=== PATIENT | female | born 1970 | race African-American/Black ===

== ENCOUNTER 2019-03-04 15:58 | Emergency (ER) | payer SELFPAY ==
[2019-03-04] MEDS ORDERED: cloNIDine 0.1 MG TAB ONE ×2 (16:09→16:19)
[2019-03-04] MEDS ORDERED: Sodium Chloride 0.9% 1,000 ML ONE (16:17)
[2019-03-04] MEDS ORDERED: diphenhydrAMINE 50 MG/ML VIAL ONE (16:18)
[2019-03-04] MEDS ORDERED: Metoclopramide HCl 10 MG/2 ML VIAL ONE (16:19)
[2019-03-04 17:01] LABS: ALT (SGPT) 15 U/L (8-55); AST (SGOT) 22 U/L (5-34); Alkaline Phosphatase 70 U/L (40-150); Anion Gap 14 mmol/L (10-20); BUN (Urea Nitrogen) 13 mg/dL (7.0-18.7); Bilirubin, Total 0.1 mg/dL (0.2-1.2); Calc. Creatinine Clearance 0 mL/min (70-130); Calcium 9.3 mg/dL (7.8-10.44); Carbon Dioxide 24 mmol/L (22-29); Chloride 103 mmol/L (98-107); Estimated GFR-MDRD 61; Globulin 3.8 g/dL (2.4-3.5); Glucose 103 mg/dL (70-105); Potassium 3.8 mmol/L (3.5-5.1); Protein, Total 7.8 g/dL (6.0-8.3); Sodium 137 mmol/L (136-145)
[2019-03-04 17:06] LABS: #Basophils 0.1 thou/uL (0.0-0.2); #Eosinphils 0.2 thou/uL (0.0-0.7); #Lymphocytes 3.1 thou/uL (1.20-3.40); #Monocytes 0.8 thou/uL (0.11-0.59); #Neutrophils 4.2 thou/uL (1.40-6.50); %Basophils 1.6 % (0.0-1.0); %Lymphocytes 36.8 % (21.0-51.0); %Monocytes 9.2 % (0.0-10.0); %Neutrophils 50.3 % (42.0-75.0); Hemoglobin 10.6 g/dL (12.0-16.0); Mean Corpuscular HGB CONC 30.1 g/dL (32.0-36.0); Mean Corpuscular Hemoglobin 26.4 pg (27.0-31.0); Mean Corpuscular Volume 87.5 fL (78.0-98.0); Mean Platelet Volume 15.3 fL (7.4-10.4); Platelet Count 143 thou/uL (130-400); RBC Distribution Width 16.7 % (11.5-14.5); White Blood Cell (WBC) Count 8.3 thou/uL (4.8-10.8)
== END 2019-03-04 17:40 | disposition home or self-care (01) ==
LOC: NAV ERS 15:58
DX: G43.909 Migraine, unspecified, not intractable, without status migrainosus (principal); I10 Essential (primary) hypertension; F41.9 Anxiety disorder, unspecified; F32.9 Major depressive disorder, single episode, unspecified; F17.210 Nicotine dependence, cigarettes, uncomplicated
CPT/HCPCS: 80053; 85025; 96361; 96374; 96375; J1200; J2765; J7050

== ENCOUNTER 2019-06-30 17:58 | Emergency (ER) | payer SELFPAY ==
[2019-06-30] MEDS ORDERED: Ondansetron ODT 4 MG TAB ONE (18:49)
[2019-06-30] MEDS ORDERED: Ibuprofen 800 MG TAB ONE (18:54)
[2019-06-30] MEDS ORDERED: Acetaminophen 500 MG TAB ONE (18:54)
== END 2019-06-30 19:07 | disposition home or self-care (01) ==
LOC: NAV ERS 17:58
DX: J06.9 Acute upper respiratory infection, unspecified (principal); I10 Essential (primary) hypertension; M79.10 Myalgia, unspecified site; G43.909 Migraine, unspecified, not intractable, without status migrainosus; F41.9 Anxiety disorder, unspecified; F31.9 Bipolar disorder, unspecified; F17.210 Nicotine dependence, cigarettes, uncomplicated
CPT/HCPCS: 87081; 87430; 87804; 99283; Q0162

== ENCOUNTER 2019-08-08 10:33 | Emergency (ER) | payer SELFPAY | END 2019-08-08 11:13 | disposition home or self-care (01) | LOC: NAV ERS 10:33 | DX: I10 Essential (primary) hypertension (principal); G43.909 Migraine, unspecified, not intractable, without status migrainosus; F31.9 Bipolar disorder, unspecified; F41.9 Anxiety disorder, unspecified; F17.210 Nicotine dependence, cigarettes, uncomplicated | CPT/HCPCS: 99283 ==

== ENCOUNTER 2019-11-12 11:51 | Outpatient (CLI) | payer OTHER ==
--- NOTE | 2019-11-12 12:12 | RAD ---
XR Lumbar Spine 2 Or 3 View HISTORY: Disability evaluation. Findings: The vertebral bodies are normal in height. Degenerative osteophytes are seen along the cour se of the spine. Minimal disc narrowing is seen at L4-5. Some mild facet hypertrophic changes are present. Pedicles are intact. Atherosclerotic changes are noted. IMPRESSION: Mild arthritic changes of the spine.
== END 2019-11-12 11:52 | disposition home or self-care (01) ==
LOC: NAV RAD 11:51
PROVIDERS: ATTEND Family Medicine
DX: Z02.71 Encounter for disability determination (principal); M54.5 Low back pain; G89.29 Other chronic pain; M47.816 Spondylosis without myelopathy or radiculopathy, lumbar region
CPT/HCPCS: 72100

== ENCOUNTER 2020-01-25 16:11 | Emergency (ER) | payer SELFPAY ==
[2020-01-25] MEDS ORDERED: Oxymetazoline HCl 0.05% (30 ML BOT) ONE (16:24)
[2020-01-25] MEDS ORDERED: Hydrochlorothiazide 25 MG TAB ONE (17:12)
[2020-01-25] MEDS ORDERED: Amlodipine 5 MG TAB ONE (17:12)
[2020-01-25] MEDS ORDERED: Ondansetron ODT 4 MG TAB ONE ×2 (17:49→18:46)
[2020-01-25] MEDS ORDERED: Acetaminophen 325 MG TAB ONE (18:50)
[2020-01-25] MEDS ORDERED: Amoxicillin/Potassium Clav 875 MG TAB ONE (19:33)
== END 2020-01-25 19:48 | disposition home or self-care (01) ==
LOC: NAV ERS 16:11
DX: R04.0 Epistaxis (principal); F41.9 Anxiety disorder, unspecified; F31.9 Bipolar disorder, unspecified; I10 Essential (primary) hypertension; Z79.899 Other long term (current) drug therapy
CPT/HCPCS: 30903; Q0162

== ENCOUNTER 2020-01-29 11:35 | Emergency (ER) | payer SELFPAY ==
[2020-01-29 12:24] LABS: ALT (SGPT) 19 U/L (8-55); AST (SGOT) 23 U/L (5-34); Albumin 3.7 g/dL (3.5-5.0); Alkaline Phosphatase 59 U/L (40-110); Anion Gap 14 mmol/L (10-20); BUN (Urea Nitrogen) 14 mg/dL (7.0-18.7); Bilirubin, Total 0.3 mg/dL (0.2-1.2); Calc. Creatinine Clearance 0 mL/min (70-130); Carbon Dioxide 26 mmol/L (22-29); Chloride 101 mmol/L (98-107); Estimated GFR-MDRD 69; Globulin 3.6 g/dL (2.4-3.5); Glucose 120 mg/dL (70-105); Potassium 3.4 mmol/L (3.5-5.1); Protein, Total 7.3 g/dL (6.0-8.3); Sodium 138 mmol/L (136-145)
[2020-01-29 12:30] LABS: Hemoglobin 7.9 g/dL (12.0-16.0); Mean Corpuscular HGB CONC 29.9 g/dL (32.0-36.0); Mean Corpuscular Hemoglobin 28.1 pg (27.0-31.0); Mean Corpuscular Volume 93.9 fL (78.0-98.0); Mean Platelet Volume 12.6 fL (7.4-10.4); Platelet Count 163 thou/uL (130-400); RBC Distribution Width 16.5 % (11.5-14.5); Red Blood Cell (RBC) Count 2.81 mill/uL (4.20-5.40); White Blood Cell (WBC) Count 11.7 thou/uL (4.8-10.8)
[2020-01-29 12:34] LABS: #Basophils 0.1 thou/uL (0.0-0.2); #Eosinphils 0.2 thou/uL (0.0-0.7); #Neutrophils 8.5 thou/uL (1.40-6.50); %Basophils 0.8 % (0.0-1.0); %Eosinophils 1.5 % (0.0-10.0); %Lymphocytes 16.6 % (21.0-51.0); %Monocytes 8.2 % (0.0-10.0); %Neutrophils 72.9 % (42.0-75.0); Hypochromia SLIGHT = 6-15 cells (100X) (0-5/hpf); Large Platelets SLIGHT; MDiff Complete? YES; Platelet Morphology Comment Appears Adequate
== END 2020-01-29 13:00 | disposition home or self-care (01) ==
LOC: NAV ERS 11:35
DX: D64.9 Anemia, unspecified (principal); R22.0 Localized swelling, mass and lump, head; I10 Essential (primary) hypertension; F31.9 Bipolar disorder, unspecified; F41.9 Anxiety disorder, unspecified; F17.210 Nicotine dependence, cigarettes, uncomplicated; Z79.899 Other long term (current) drug therapy
CPT/HCPCS: 36415; 80053; 85025; 99284

== ENCOUNTER 2020-10-14 14:44 | Emergency (ER) | payer SELFPAY ==
[2020-10-16 01:19] LABS: SARS-CoV-2 PCR by NAA Not Detected (NotDetected)
== END 2020-10-14 15:30 | disposition home or self-care (01) ==
LOC: NAV ERS 14:44
DX: B34.9 Viral infection, unspecified (principal); Z20.822 Contact with and (suspected) exposure to COVID-19; I10 Essential (primary) hypertension; F17.210 Nicotine dependence, cigarettes, uncomplicated; G43.909 Migraine, unspecified, not intractable, without status migrainosus; Z79.899 Other long term (current) drug therapy
CPT/HCPCS: 87635; 99283; U0003; U0005

== ENCOUNTER 2021-04-03 18:01 | Emergency (ER) | payer SELFPAY ==
[~2021-04-03 18:01] MED LIST: Iopamidol 370 76% 100 ML VIAL ONE
[2021-04-03 18:45] LABS: Bilirubin Small (Negative); Blood, Urine Large (Negative); Glucose, Urine (Dipstick) Negative (Negative); Ketone, Urine Negative (Negative); Leukocyte Small (Negative); Nitrite Negative (Negative); Protein, Urine (Dipstick) Trace mg/dL (Neg-Trace); Specific Gravity, Urine 1.025 (1.005-1.030); pH, Urine 6.5 (5.0-9.0)
[2021-04-03 18:51] LABS: Clarity Hazy (Clear)
[2021-04-03 18:52] LABS: Pregnancy Test - Urine (BHCG) Negative (Negative); Pregu Control Background? CLEAR/WHITE (CLR/WHITE); Pregu Control Bar Appear? YES (CONTROL BAR); Specific Gravity 1.025 (1.002-1.036)
[2021-04-03] MEDS ORDERED: Morphine 4 MG/ML VIAL ONE (19:03)
[2021-04-03] MEDS ORDERED: Ondansetron PF 4 MG/2 ML Vial ONE (19:03)
[2021-04-03 19:05] LABS: Bacteria/HPF 2+ HPF (None Seen); Squamous Epithelial 0-3 HPF (0-3); Trichomonas/HPF 2+ HPF (None Seen); WBC/HPF 0-3 HPF (0-3)
[2021-04-03 19:14] LABS: ALT (SGPT) 16 U/L (8-55); AST (SGOT) 21 U/L (5-34); Albumin 3.9 g/dL (3.5-5.0); Alkaline Phosphatase 71 U/L (40-110); Anion Gap 15 mmol/L (10-20); BUN (Urea Nitrogen) 16 mg/dL (9.8-20.1); Bilirubin, Total 0.2 mg/dL (0.2-1.2); Calc. Creatinine Clearance 0 mL/min (70-130); Calcium 9.5 mg/dL (7.8-10.44); Carbon Dioxide 23 mmol/L (22-29); Chloride 103 mmol/L (98-107); Globulin 4.1 g/dL (2.4-3.5); Glucose 94 mg/dL (70-105); Lipase 33 U/L (8-78); Potassium 3.7 mmol/L (3.5-5.1); Sodium 137 mmol/L (136-145)
[2021-04-03 19:23] LABS: #Basophils 0.1 thou/uL (0.0-0.2); #Eosinphils 0.2 thou/uL (0.0-0.7); #Lymphocytes 3.1 thou/uL (1.20-3.40); #Neutrophils 4.2 thou/uL (1.40-6.50); %Basophils 1.5 % (0.0-1.0); %Eosinophils 2.3 % (0.0-10.0); %Lymphocytes 36.4 % (21.0-51.0); %Monocytes 11.3 % (0.0-10.0); %Neutrophils 48.6 % (42.0-75.0); Hemoglobin 11.4 g/dL (12.0-16.0); Mean Corpuscular HGB CONC 29.4 g/dL (32.0-36.0); Mean Corpuscular Hemoglobin 27.6 pg (27.0-31.0); Mean Corpuscular Volume 93.9 fL (78.0-98.0); Mean Platelet Volume 13.1 fL (7.4-10.4); Platelet Count 125 thou/uL (130-400); RBC Distribution Width 16.4 % (11.5-14.5); Red Blood Cell (RBC) Count 4.13 mill/uL (4.20-5.40); White Blood Cell (WBC) Count 8.6 thou/uL (4.8-10.8)
[2021-04-03] MEDS ORDERED: Sodium Chloride 0.9% 100 ML ONE (21:44)
[2021-04-03] MEDS ORDERED: cefTRIAXone\\ROCEPHIN 1 GM VIAL ONE (21:44)
[2021-04-03] MEDS ORDERED: metroNIDAZOLE 500 MG TAB ONE (22:28)
== END 2021-04-03 22:35 | disposition home or self-care (01) ==
LOC: NAV ERS 18:01
DX: A59.01 Trichomonal vulvovaginitis (principal); I10 Essential (primary) hypertension; G43.909 Migraine, unspecified, not intractable, without status migrainosus; F17.210 Nicotine dependence, cigarettes, uncomplicated; Z79.899 Other long term (current) drug therapy
CPT/HCPCS: 74177; 80053; 81003; 81015; 81025; 83690; 84484; 85025; 93005; 96365; 96375; J0696; J2270; J2405; Q9967

== ENCOUNTER 2021-04-28 16:31 | Emergency (ER) | payer SELFPAY ==
[2021-04-28 18:10] LABS: Bilirubin Negative (Negative); Blood, Urine Negative (Negative); Clarity Clear (Clear); Glucose, Urine (Dipstick) Negative (Negative); Ketone, Urine Negative (Negative); Leukocyte Negative (Negative); Nitrite Negative (Negative); Protein, Urine (Dipstick) Negative (Neg-Trace); Specific Gravity, Urine 1.015 (1.005-1.030); Urobilinogen 0.2 mg/dL (Less than 2); pH, Urine 6.5 (5.0-9.0)
[2021-04-28 18:14] LABS: #Basophils 0.2 thou/uL (0.0-0.2); #Eosinphils 0.2 thou/uL (0.0-0.7); #Lymphocytes 1.6 thou/uL (1.20-3.40); #Monocytes 0.8 thou/uL (0.11-0.59); #Neutrophils 3.1 thou/uL (1.40-6.50); %Eosinophils 3.4 % (0.0-10.0); %Lymphocytes 27.9 % (21.0-51.0); %Monocytes 13.3 % (0.0-10.0); %Neutrophils 52.3 % (42.0-75.0); Hemoglobin 12.5 g/dL (12.0-16.0); Mean Corpuscular HGB CONC 29.3 g/dL (32.0-36.0); Mean Corpuscular Hemoglobin 27.6 pg (27.0-31.0); Mean Corpuscular Volume 94.2 fL (78.0-98.0); Mean Platelet Volume 12.1 fL (7.4-10.4); Platelet Count 120 thou/uL (130-400); RBC Distribution Width 16.9 % (11.5-14.5); Red Blood Cell (RBC) Count 4.52 mill/uL (4.20-5.40); White Blood Cell (WBC) Count 5.8 thou/uL (4.8-10.8)
[2021-04-28 18:21] LABS: ALT (SGPT) 24 U/L (8-55); AST (SGOT) 32 U/L (5-34); Alkaline Phosphatase 64 U/L (40-110); Anion Gap 14 mmol/L (10-20); BUN (Urea Nitrogen) 12 mg/dL (9.8-20.1); Bilirubin, Total 0.2 mg/dL (0.2-1.2); Calc. Creatinine Clearance 0 mL/min (70-130); Calcium 9.6 mg/dL (7.8-10.44); Carbon Dioxide 24 mmol/L (22-29); Chloride 102 mmol/L (98-107); Globulin 4.4 g/dL (2.4-3.5); Glucose 86 mg/dL (70-105); Lipase 37 U/L (8-78); Potassium 3.9 mmol/L (3.5-5.1); Protein, Total 8.4 g/dL (6.0-8.3); Sodium 136 mmol/L (136-145)
[2021-04-28 18:25] LABS: Pregnancy Test - Urine (BHCG) Negative (Negative); Pregu Control Background? CLEAR/WHITE (CLR/WHITE); Pregu Control Bar Appear? YES (CONTROL BAR)
[2021-04-28 18:26] LABS: Specific Gravity 1.015 (1.002-1.036)
[2021-04-28] MEDS ORDERED: Morphine 4 MG/ML VIAL ONE (18:41)
[2021-04-28] MEDS ORDERED: Ondansetron PF 4 MG/2 ML Vial ONE (18:41)
[2021-04-28] MEDS ORDERED: Lisinopril 10 MG TAB ONE (20:14)
[2021-04-28] MEDS ORDERED: Hydrochlorothiazide 25 MG TAB ONE (20:14)
[2021-04-28] MEDS ORDERED: Cyclobenzaprine 10 MG TAB ONE (20:34)
[2021-04-28] MEDS ORDERED: Ketorolac Tromethamine 30 MG/ML VIAL ONE (20:34)
[2021-04-29 23:53] LABS: SARS-CoV-2 PCR by NAA DETECTED (NotDetected)
== END 2021-04-28 21:26 | disposition home or self-care (01) ==
LOC: NAV ERS 16:31
DX: U07.1 COVID-19 (principal); G43.909 Migraine, unspecified, not intractable, without status migrainosus; G89.29 Other chronic pain; R10.31 Right lower quadrant pain; R10.11 Right upper quadrant pain; M54.5 Low back pain; I10 Essential (primary) hypertension; R11.0 Nausea; M79.7 Fibromyalgia; M19.90 Unspecified osteoarthritis, unspecified site; F17.210 Nicotine dependence, cigarettes, uncomplicated; Z79.899 Other long term (current) drug therapy
CPT/HCPCS: 70450; 74177; 80053; 81003; 81025; 83690; 84484; 85025; 93005; 94760; 96374; 96375; J1885; J2270; J2405; Q9967; U0003; U0005

== ENCOUNTER 2021-11-11 09:35 | Emergency (ER) | payer SELFPAY ==
[2021-11-11 10:04] LABS: Bilirubin Negative (Negative); Blood, Urine Moderate (Negative); Clarity Slightly Cloudy (Clear); Glucose, Urine (Dipstick) Negative (Negative); Ketone, Urine Negative (Negative); Leukocyte Negative (Negative); Nitrite Negative (Negative); Protein, Urine (Dipstick) Negative (Neg-Trace); Specific Gravity, Urine 1.025 (1.005-1.030); Urobilinogen 0.2 mg/dL (Less than 2)
[2021-11-11 10:10] LABS: Bacteria/HPF 2+ HPF (None Seen); WBC/HPF 0-3 HPF (0-3); Yeast-Hyphae 1+ HPF (None Seen)
[2021-11-11 10:57] LABS: Pregnancy Test - Urine (BHCG) Negative (Negative); Pregu Control Background? CLEAR/WHITE (CLR/WHITE); Pregu Control Bar Appear? YES (CONTROL BAR); Specific Gravity 1.025 (1.002-1.036)
== END 2021-11-11 10:53 | disposition home or self-care (01) ==
LOC: NAV ERS 09:35
DX: N83.201 Unspecified ovarian cyst, right side (principal); R30.0 Dysuria; I10 Essential (primary) hypertension; M47.9 Spondylosis, unspecified; M79.7 Fibromyalgia; F17.210 Nicotine dependence, cigarettes, uncomplicated; Z79.899 Other long term (current) drug therapy
CPT/HCPCS: 74176; 81003; 81015; 81025; 87077; 87086; 99406

== ENCOUNTER 2022-01-23 07:45 | Emergency (ER) | payer SELFPAY ==
[2022-01-23] MEDS ORDERED: Acetaminophen 325 MG TAB ONE (08:33)
[2022-01-23] MEDS ORDERED: Sodium Chloride 0.9% 1,000 ML ONE (08:33)
[2022-01-23] MEDS ORDERED: Ondansetron PF 4 MG/2 ML Vial ONE (08:33)
[2022-01-23] MEDS ORDERED: Morphine 4 MG/ML VIAL ONE (08:50)
[2022-01-23 08:53] LABS: Bilirubin Small (Negative); Clarity Clear (Clear); Glucose, Urine (Dipstick) Negative (Negative); Ketone, Urine Negative (Negative); Leukocyte Negative (Negative); Nitrite Negative (Negative); Protein, Urine (Dipstick) 30 mg/dL (Neg-Trace)
[2022-01-23 08:54] LABS: Blood, Urine Negative (Negative)
[2022-01-23 09:04] LABS: #Basophils 0.1 thou/uL (0.0-0.2); #Lymphocytes 1.4 thou/uL (1.20-3.40); #Monocytes 0.8 thou/uL (0.11-0.59); #Neutrophils 2.1 thou/uL (1.40-6.50); %Basophils 2.8 % (0.0-1.0); %Eosinophils 0.3 % (0.0-10.0); %Lymphocytes 31.1 % (21.0-51.0); %Monocytes 17.7 % (0.0-10.0); %Neutrophils 48.2 % (42.0-75.0); Hemoglobin 10.6 g/dL (12.0-16.0); Mean Corpuscular HGB CONC 28.5 g/dL (32.0-36.0); Mean Corpuscular Hemoglobin 24.5 pg (27.0-31.0); Mean Corpuscular Volume 85.9 fL (78.0-98.0); Mean Platelet Volume 16.2 fL (7.4-10.4); Platelet Count 123 thou/uL (130-400); RBC Distribution Width 17.9 % (11.5-14.5); Red Blood Cell (RBC) Count 4.31 mill/uL (4.20-5.40); White Blood Cell (WBC) Count 4.5 thou/uL (4.8-10.8)
[2022-01-23 09:09] LABS: Bacteria/HPF Rare-Few HPF (None Seen); RBC/HPF None Seen HPF (0-3)
[2022-01-23 09:10] LABS: WBC/HPF 0-3 HPF (0-3)
[2022-01-23 09:16] LABS: ALT (SGPT) 36 U/L (8-55); AST (SGOT) 42 U/L (5-34); Albumin 4.1 g/dL (3.5-5.0); Alkaline Phosphatase 65 U/L (40-110); Anion Gap 17 mmol/L (10-20); BUN (Urea Nitrogen) 7 mg/dL (9.8-20.1); Bilirubin, Total 0.2 mg/dL (0.2-1.2); Calc. Creatinine Clearance 0 mL/min (70-130); Calcium 9.5 mg/dL (7.8-10.44); Carbon Dioxide 24 mmol/L (22-29); Chloride 101 mmol/L (98-107); Globulin 4.3 g/dL (2.4-3.5); Glucose 103 mg/dL (70-105); Lipase 31 U/L (8-78); Potassium 3.6 mmol/L (3.5-5.1); Protein, Total 8.4 g/dL (6.0-8.3); Sodium 138 mmol/L (136-145)
[2022-01-23] MEDS ORDERED: Losartan Potassium 50 MG TAB ONE (09:32)
[2022-01-23] MEDS ORDERED: Hydrochlorothiazide 25 MG TAB ONE (09:32)
[2022-01-23] MEDS ORDERED: Aspirin Chewable 81 MG TAB ONE (10:15)
[2022-01-23 20:58] LABS: SARS-CoV-2 PCR by NAA DETECTED (NotDetected)
== END 2022-01-23 10:25 | disposition home or self-care (01) ==
LOC: NAV ERS 07:45
DX: U07.1 COVID-19 (principal); I10 Essential (primary) hypertension; R11.2 Nausea with vomiting, unspecified; R91.1 Solitary pulmonary nodule; M79.7 Fibromyalgia; M19.90 Unspecified osteoarthritis, unspecified site; F17.210 Nicotine dependence, cigarettes, uncomplicated; Z79.899 Other long term (current) drug therapy
CPT/HCPCS: 70450; 71045; 74176; 80053; 81003; 81015; 83690; 83735; 84484; 85025; 87804; 93005; 94760; 96361; 96374; 96375; J2270; J2405; J7050; U0003; U0005

== ENCOUNTER 2022-06-01 10:58 | Emergency (ER) | payer SELFPAY ==
[2022-06-01] MEDS ORDERED: cloNIDine 0.1 MG TAB ONE (11:33)
[2022-06-01] MEDS ORDERED: Ondansetron ODT 4 MG TAB ONE (11:33)
== END 2022-06-01 12:24 | disposition home or self-care (01) ==
LOC: NAV ERS 10:58
DX: K52.9 Noninfective gastroenteritis and colitis, unspecified (principal); I10 Essential (primary) hypertension; Z20.822 Contact with and (suspected) exposure to COVID-19; F17.210 Nicotine dependence, cigarettes, uncomplicated; Z79.899 Other long term (current) drug therapy
CPT/HCPCS: 99284; Q0162; U0003; U0005

== ENCOUNTER 2023-05-11 14:04 | Emergency (ER) | payer BC, SELFPAY ==
[2023-05-11] MEDS ORDERED: Ketorolac Tromethamine 30 MG/ML VIAL ONE (14:55)
[2023-05-11] MEDS ORDERED: Ondansetron PF 4 MG/2 ML Vial ONE (14:55)
[2023-05-11 15:05] LABS: Bilirubin Negative (Negative); Blood, Urine Trace (Negative); Glucose, Urine (Dipstick) Negative (Negative); Ketone, Urine Negative (Negative); Leukocyte Negative (Negative); Nitrite Negative (Negative); Protein, Urine (Dipstick) Negative (Neg-Trace); Specific Gravity, Urine 1.025 (1.005-1.030); Urobilinogen 0.2 mg/dL (Less than 2); pH, Urine 5.5 (5.0-9.0)
[2023-05-11 15:07] LABS: #Basophils 0.1 thou/uL (0.0-0.2); #Eosinphils 0.2 thou/uL (0.0-0.7); #Lymphocytes 2.5 thou/uL (1.20-3.40); #Monocytes 0.6 thou/uL (0.11-0.59); #Neutrophils 3.8 thou/uL (1.40-6.50); %Basophils 0.8 % (0.0-1.0); %Eosinophils 3.3 % (0.0-10.0); %Lymphocytes 34.9 % (21.0-51.0); %Monocytes 8.7 % (0.0-10.0); %Neutrophils 52.3 % (42.0-75.0); Hematocrit 42.1 % (36.0-47.0); Hemoglobin 12.9 g/dL (12.0-16.0); Mean Corpuscular HGB CONC 30.7 g/dL (32.0-36.0); Mean Corpuscular Hemoglobin 30.3 pg (27.0-31.0); Mean Corpuscular Volume 98.6 fl (78.0-98.0); Platelet Count 104 10x3/uL (130-400); Red Blood Cell (RBC) Count 4.27 mill/uL (4.20-5.40); White Blood Cell (WBC) Count 7.2 10x3/uL (4.8-10.8)
[2023-05-11 15:09] LABS: Clarity Hazy (Clear)
[2023-05-11 15:13] LABS: RBC/HPF 0-3 HPF (0-3); WBC/HPF 0-3 HPF (0-3)
[2023-05-11 15:14] LABS: Bacteria/HPF Rare-Few HPF (None Seen)
[2023-05-11 15:16] LABS: Urine Culture Reflex No No
[2023-05-11 15:18] LABS: ALT (SGPT) 17 U/L (8-55); AST (SGOT) 21 U/L (5-34); Albumin 4.2 g/dL (3.5-5.0); Alkaline Phosphatase 74 U/L (40-110); Anion Gap 13 mmol/L (10-20); BUN (Urea Nitrogen) 13 mg/dL (9.8-20.1); Bilirubin, Total 0.3 mg/dL (0.2-1.2); Calc. Creatinine Clearance 0 mL/min (70-130); Carbon Dioxide 25 mmol/L (22-29); Chloride 106 mmol/L (98-107); Estimated GFR 60; Globulin 3.6 g/dL (2.4-3.5); Glucose 100 mg/dL (70-105); Lipase 29 U/L (8-78); Potassium 3.4 mmol/L (3.5-5.1); Protein, Total 7.8 g/dL (6.0-8.3); Sodium 141 mmol/L (136-145)
[2023-05-11 15:20] LABS: Troponin I Less than 0.010 ng/mL (< 0.028)
== END 2023-05-11 16:30 | disposition home or self-care (01) ==
LOC: NAV ERS 14:04
DX: S39.012A Strain of muscle, fascia and tendon of lower back, initial encounter (principal); I10 Essential (primary) hypertension; F17.210 Nicotine dependence, cigarettes, uncomplicated; M79.7 Fibromyalgia; X58.XXXA Exposure to other specified factors, initial encounter
CPT/HCPCS: 74177; 80053; 81001; 83690; 84443; 84484; 85025; 93005; 96374; 96375; J1885; J2405

== ENCOUNTER 2024-03-07 19:38 | Emergency (ER) | payer BC ==
[2024-03-07] MEDS ORDERED: Amoxicillin/Potassium Clav 875 MG TAB ONE (20:05)
[2024-03-07] MEDS ORDERED: Ibuprofen 200 MG TAB ONE (20:11)
== END 2024-03-07 20:22 | disposition home or self-care (01) ==
LOC: NAV ERS 19:38
DX: S91.351A Open bite, right foot, initial encounter (principal); L03.115 Cellulitis of right lower limb; I10 Essential (primary) hypertension; F17.210 Nicotine dependence, cigarettes, uncomplicated; W55.01XA Bitten by cat, initial encounter; Z79.899 Other long term (current) drug therapy
CPT/HCPCS: 99283